=== PATIENT | male | born 1975 | race Caucasian/White ===

== ENCOUNTER 2020-02-03 10:23 | Outpatient (CLI) | payer BC ==
[~2020-02-03] VITALS: Ht 190 cm; Wt 136.3 kg
[~2020-02-03 10:23] MED LIST: CETI10TA17 PO; MULT-1136 PO; OMEG-109 PO; VARE1TAB21 PO
== END 2020-02-03 10:24 ==
LOC: PREOP 10:23
PROVIDERS: ATTEND Surgery
DX: Z01.818 Encounter for other preprocedural examination (principal)

== ENCOUNTER 2020-02-05 07:36 | Day surgery (SDC) | payer BC ==
[~2020-02-05] VITALS: Ht 190 cm; Wt 136.3 kg
[2020-02-05] VITALS (9 sets, daily range): BP systolic 94–134; BP diastolic 62–91
--- NOTE | 2020-02-05 07:57 | Progress Note-Pre Operative ---
Pre-Operative Progress Note H&P Reviewed The H&P was reviewed, patient examined and no changes noted. Date Seen by Provider: Feb 05, 2020 Time Seen by Provider: 07:57 Date H&P Reviewed: Feb 05, 2020 Time H&P Reviewed: 07:57 Pre-Operative Diagnosis: scalp cyst and lesion left side JACKI STRANGE DO Feb 05, 2020 07:57
[2020-02-05] MEDS ORDERED: BUP/EPI 0.25% 1:200,000 (MARCAINE) 30 ML VIAL ONE (08:08)
[2020-02-05] MEDS ORDERED: NEO/POLY/BAC (NEOSPORIN) OINT 15 GM TUBE ONE (08:08)
[2020-02-05] MEDS: LACTATED RINGERS 1,000 ML IV PRN ×2 (08:10→10:34)
[2020-02-05] MEDS ORDERED: CATHETER FLUSH 10 ML SYR IV PRN (08:15)
[2020-02-05] MEDS ORDERED: ceFAZolin 2 GM IV Premixed 50 ML IV ONE (08:15)
[2020-02-05] MEDS ORDERED: FAMOTIDINE 20MG/2ML IV (PEPCID) ONE (08:22)
[2020-02-05] MEDS ORDERED: FAMOTIDINE 20MG/2ML IV (PEPCID) IV ONE (08:30)
[2020-02-05] MEDS ORDERED: MIDAZOLAM 2 MG/2 ML (VERSED) VIAL ONE (08:58)
[2020-02-05] MEDS ORDERED: proPOfol 200 MG/20 ML (DIPRIVAN) VIAL IV ONE (09:00)
[2020-02-05] MEDS ORDERED: LIDOCAINE/EPI 1%-1:100,000 (XYLOCAINE) 20ML ONE (09:07)
[2020-02-05] MEDS ORDERED: fentaNYL INJECTION 100 MCG/2 ML AMP ONE (09:23)
[2020-02-05] MEDS ORDERED: LIDOCAINE PF 2% 5 ML (XYLOCAINE) VIAL ONE (09:31)
[2020-02-05] MEDS ORDERED: ONDANSETRON 4 MG/2 ML (SDV) Z0FRAN ONE (10:01)
[2020-02-05] MEDS ORDERED: SEVOFLURANE (ULTANE) 15 ML INHAL SOLN ONE (10:19)
--- NOTE | 2020-02-05 10:38 | Anesthesia-General Post-Op ---
General Patient Condition Mental Status/LOC: Same as Preop Cardiovascular: Satisfactory Nausea/Vomiting: Absent Respiratory: Satisfactory Pain: Controlled Complications: Absent Post Op Complications Complications None Follow Up Care/Instructions Patient Instructions None needed. Anesthesia/Patient Condition Patient Condition Patient is doing well, no complaints, stable vital signs, no apparent adverse anesthesia problems. No complications reported per nursing. ORVILLE EVANGELISTA CRNA Feb 05, 2020 10:38
--- NOTE | 2020-02-05 10:38 | Progress Note-Post Operative ---
Post-Operative Progess Note Surgeon (s)/Admin Dir (s) Surgeon JACKI STRANGE DO Admin Dir: na Pre-Operative Diagnosis scalp cyst and lesion left side Post-Operative Diagnosis same Procedure & Operative Findings Date of Procedure 02/05/20 Procedure Performed/Findings excision left scalp cyst 1.5x1cm and left scalp lesion 1.3x3cm Anesthesia Type general Estimated Blood Loss Estimated blood loss (mL): min Specimens/Packing Specimens Removed cyst, scalp lesion JACKI STRANGE DO Feb 05, 2020 10:38
--- NOTE | 2020-02-05 10:41 | Discharge Inst-Simple/Standard ---
Discharge Inst-Standard Patient Instructions/Follow Up Plan of Care/Instructions/FU: 7-10 days for suture removal Nika Activity as Tolerated: Yes Discharge Diet: Regular Diet Other Inst to Patient Follow up Appt: Make appointment for 2 week. Instructions: May shower in 24 hours, no tub bath or soaking. Use incentive spirometer at home as directed. No Smoking Skin/Wound Care: Keep area clean and dry. Symptoms to Report: Appetite Changes, Extremity Discoloration, Numbness/Tingling, Swelling Increased, Bleeding Excessive, Eyesight Changes, Pain Increased, Urine Color Claudia nge, Constipation(Persistent), Fever over 101 degree F, Pain/Pressure in chest, Urinating Difficulty, Cough Up/Vomit Blood, Heart Beat Irreg/Pounding, Pain/Pressure in jaw, Vaginal Bleeding Increase, Cramps in feet or legs, Lightheadedness, Pain/Pressure in shoulder, Diarrhea(Persistent), Memory Changes Suddenly, Questions/Concerns, Weight gain consecutive days, Dizziness/Fainting, Nausea/Vomiting, Shortness of Breath, Weight gain over 2 pounds If questions or concerns contact your physician Or seek help at emergency department. JACKI STRANGE DO Feb 05, 2020 10:41
[2020-02-05] MEDS ORDERED: ONDANSETRON 4 MG/2 ML (SDV) Z0FRAN IVP PRN (10:45)
[2020-02-05] MEDS ORDERED: fentaNYL INJECTION 100 MCG/2 ML AMP IVP ONE (10:45)
[2020-02-05] MEDS ORDERED: morphine INJ 10 MG/ML 1ML (SYR OR VIAL) IVP ONE (10:45)
[2020-02-05] MEDS ORDERED: HYDROmorphone 2 MG/ML VIAL (DILAUDID) IV ONE (10:45)
[2020-02-05] MEDS ORDERED: MEPERIDINE (DEMEROL) INJ 50 MG/ML IVP ONE (10:45)
--- NOTE | 2020-02-05 13:57 | OPERATIVE REPORT ---
DATE OF SERVICE: 02/05/2020 PREOPERATIVE DIAGNOSIS: Cyst and skin lesion of left scalp. POSTOPERATIVE DIAGNOSIS: Cyst and skin lesion of left scalp. PROCEDURE PERFORMED: Excision of left scalp cyst 1.5 x 1 cm and left scalp lesion 1.3 x 3 cm. SURGEON: Jacki Maher DO. ANESTHESIA: General. ESTIMATED BLOOD LOSS: Minimal. COMPLICATIONS: None. INDICATIONS FOR PROCEDURE: The patient is a 44-year-old male with a cyst and skin lesion. He would like to have it removed. He understands risks and benefits of the procedure and wished to proceed with procedure. Consent was signed in the chart. DESCRIPTION OF PROCEDURE: The patient was taken to the operating suite. He was prepped and draped in a sterile fashion. Surgical pause was performed. Local anesthetic was infiltrated around the lesion and also the cyst. A 15-blade scalpel was used to make a small skin incision over the cyst and [place] and tenotomy scissors were used to dissect around the cyst and the cyst was able to be delivered through the incision, which was in the subcutaneous tissue layer and dissected around and removed. Hemostasis was achieved. The wound was irrigated with copious amounts of irrigation. Skin was then closed using 4-0 Prolene in a simple interrupted fashion. Elliptical incision was then made around the skin lesion measuring 1.3 x 3 cm. The skin and subcutaneous tissue were removed. Cautery was used to achieve hemostasis. The skin was then closed using 4-0 Prolene in a running fashion. The areas were then washed and dried and sterile bandages were applied. The patient tolerated the procedure well without any complications. He was taken to recovery room in a stable condition. RECOMMENDATIONS: The patient will follow up arranged for suture removal to discuss pathology. Job ID: [id number] DocumentID: [id number] Dictated Date: 02/05/2020 10:45:15 Ticket Writer Date: 02/05/2020 13:56:39 Dictated By: JACKI MAHER DO
== END 2020-02-05 12:05 | disposition home or self-care (01) ==
LOC: SDC 07:36
PROVIDERS: ATTEND Surgery
DX: L72.11 Pilar cyst (principal); D23.4 Other benign neoplasm of skin of scalp and neck; K21.9 Gastro-esophageal reflux disease without esophagitis; E66.01 Morbid (severe) obesity due to excess calories; Z68.37 Body mass index [BMI] 37.0-37.9, adult; F17.210 Nicotine dependence, cigarettes, uncomplicated; Z79.899 Other long term (current) drug therapy; Z82.49 Family history of ischemic heart disease and other diseases of the circulatory system
CPT/HCPCS: 87081; 88304; 88305